=== PATIENT | female | born 1960 | race Caucasian/White ===

== ENCOUNTER 2016-11-07 20:34 | Emergency (ER) | payer OTHER ==
[~2016-11-07] VITALS: Ht 175.3 cm; Wt 79.4 kg
[~2016-11-07 20:34] MED LIST: CLON2TAB3 PO; FLUO20CA36 PO; LAMO200T2 PO
[2016-11-07] MEDS ORDERED: ACETAMINOPHEN/CODEINE 300-30 MG TABLET PO ONE (21:00)
[2016-11-07] MEDS ORDERED: CLONAZEPAM 0.5 MG TABLET PO ONE (21:00)
--- NOTE | 2016-11-07 21:12 | NUR ---
Patient discharged to home in stable conditon. Written and verbal after care instructions given. Patient verbalizes understanding of instructions.
[2016-11-07] MEDS ORDERED: ACETAMINOPHEN/CODEINE 300-30 MG TABLET ONE (21:17)
[2016-11-07] MEDS ORDERED: CLONAZEPAM 1 MG TABLET ONE (21:17)
[2016-11-07] MEDS ORDERED: ONDANSETRON ODT 4 MG TAB.RAPDIS ONE (21:20)
== END 2016-11-07 21:18 | disposition home or self-care (01) ==
LOC: ER 20:34
DX: G89.29 Other chronic pain (principal); R42 Dizziness and giddiness; R51 Headache; F07.81 Postconcussional syndrome; R59.0 Localized enlarged lymph nodes; F41.0 Panic disorder [episodic paroxysmal anxiety]; Z88.6 Allergy status to analgesic agent; Z88.2 Allergy status to sulfonamides; Z88.8 Allergy status to other drugs, medicaments and biological substances
CPT/HCPCS: A4663; Q0162

== ENCOUNTER 2016-12-08 16:20 | Emergency (ER) | payer OTHER ==
[~2016-12-08] VITALS: Ht 175.3 cm; Wt 77.1 kg
[2016-12-08] MEDS ORDERED: HYDROCODONE/APAP 5-325MG TABLET PO ONE (16:45)
[2016-12-08] MEDS ORDERED: HYDROCODONE/APAP 5-325MG TABLET ONE ×2 (16:55→17:09)
[2016-12-08] MEDS ORDERED: ONDANSETRON ODT 4 MG TAB.RAPDIS SL ONE (17:00)
[2016-12-08] MEDS ORDERED: ONDANSETRON ODT 4 MG TAB.RAPDIS ONE (17:09)
--- NOTE | 2016-12-08 17:56 | NUR ---
Patient discharged to home in stable conditon. Written and verbal after care instructions given. Patient verbalizes understanding of instructions.pt walks in steady gait. Addendum: 12/08/16 at 1801 by SAL pt not driving
[2016-12-08 18:00] VITALS: BP 121/61
== END 2016-12-08 18:09 | disposition home or self-care (01) ==
LOC: ER 16:22
DX: S29.001A Unspecified injury of muscle and tendon of front wall of thorax, initial encounter (principal); S66.902A Unspecified injury of unspecified muscle, fascia and tendon at wrist and hand level, left hand, initial encounter; S66.901A Unspecified injury of unspecified muscle, fascia and tendon at wrist and hand level, right hand, initial encounter; F07.81 Postconcussional syndrome; F31.9 Bipolar disorder, unspecified; G43.909 Migraine, unspecified, not intractable, without status migrainosus; M79.7 Fibromyalgia; Z59.0 Homelessness; Z87.820 Personal history of traumatic brain injury; Z88.2 Allergy status to sulfonamides; Z79.899 Other long term (current) drug therapy; W18.40XA Slipping, tripping and stumbling without falling, unspecified, initial encounter; Y93.02 Activity, running; Y92.89 Other specified places as the place of occurrence of the external cause; Y99.8 Other external cause status
CPT/HCPCS: 70450; 71010; 72125; 73080; 73110; A4663

== ENCOUNTER 2017-05-06 21:12 | Emergency (ER) | payer OTHER ==
[~2017-05-06] VITALS: Ht 175.3 cm; Wt 68.0 kg
[2017-05-06] MEDS ORDERED: OXYCODONE/APAP 5-325 MG TABLET PO ONE ×2 (22:15→23:30)
[2017-05-06] MEDS ORDERED: ONDANSETRON ODT 4 MG TAB.RAPDIS SL ONE (22:15)
[2017-05-06] MEDS ORDERED: ONDANSETRON ODT 4 MG TAB.RAPDIS ONE (22:27)
[2017-05-06] MEDS ORDERED: OXYCODONE/APAP 5-325 MG TABLET ONE ×2 (22:28→23:50)
--- NOTE | 2017-05-06 22:30 | NUR ---
pt awake, alert, and orientated x4. able to speak in full sentences. able to make needs known. responsive to verbal and tactile stimuli. pt comes in with c/o SOLORIO 9/10 pain. ER MD orders carried out. pt taken down via w/c for CT
--- NOTE | 2017-05-06 22:41 | NUR ---
pt returned from CT via w/c and self transferred to bed.
[2017-05-06] MEDS ORDERED: NAPROXEN 500 MG TABLET PO ONE (23:00)
[2017-05-06] MEDS ORDERED: NAPROXEN 500 MG TABLET ONE (23:50)
--- NOTE | 2017-05-06 23:56 | NUR ---
Patient discharged to home in stable conditon. Written and verbal after care instructions given as well as rx. pt instructed to not drive while taking RX. per pt [facility] is method of transportation Patient verbalizes understanding of instructions.
[2017-05-06 23:58] VITALS: BP 120/79
== END 2017-05-06 23:50 | disposition home or self-care (01) ==
LOC: ER 21:12
DX: G43.909 Migraine, unspecified, not intractable, without status migrainosus (principal); M54.2 Cervicalgia; G89.4 Chronic pain syndrome; M79.7 Fibromyalgia; Z88.2 Allergy status to sulfonamides
CPT/HCPCS: 70450; 72125; A4663; Q0162

== ENCOUNTER 2017-08-18 00:34 | Emergency (ER) | payer SELFPAY ==
[~2017-08-18] VITALS: Ht 350.5 cm; Wt 63.5 kg
--- NOTE | 2017-08-18 01:04 | NUR ---
PT ARRIVED TO ER AT 0035 AND LEFT AT 0104 WITHOUT SEEING MD. PT STATES WILL COME BACK WHEN ANOTHER DOCTOR IS AVAILABLE.
== END 2017-08-18 01:24 | disposition left against medical advice (07) ==
LOC: ER 00:38
DX: S09.90XA Unspecified injury of head, initial encounter (principal); Z88.2 Allergy status to sulfonamides; Z88.5 Allergy status to narcotic agent; Z88.8 Allergy status to other drugs, medicaments and biological substances; Z79.899 Other long term (current) drug therapy; X58.XXXA Exposure to other specified factors, initial encounter; Y93.89 Activity, other specified; Y92.89 Other specified places as the place of occurrence of the external cause; Y99.8 Other external cause status
CPT/HCPCS: A4663

== ENCOUNTER 2017-08-18 07:07 | Emergency (ER) | payer OTHER ==
[~2017-08-18] VITALS: Ht 175.3 cm; Wt 77.1 kg
--- NOTE | 2017-08-18 07:34 | NUR ---
Dr Thompson at the bedside for MSE.
[2017-08-18 08:03] LABS: BASOPHILS % (AUTO) 0.7 % (0.0-2.0); EOSINOPHILS # (AUTO) 0.1 K/uL (0.0-0.7); EOSINOPHILS % (AUTO) 2.4 % (0.0-7.0); HEMATOCRIT 33.1 % (31.2-41.9); HEMOGLOBIN 11.1 g/dL (10.9-14.3); LYMPHOCYTES # (AUTO) 2.6 K/uL (20.0-40.0); LYMPHOCYTES % (AUTO) 45.4 % (20.5-51.5); MEAN CORPUSCULAR HGB CONC 34 g/dL (32.3-35.6); MEAN CORPUSCULAR VOLUME 92.6 fL (75.5-95.3); MONOCYTES # (AUTO) 0.5 K/uL (2.0-10.0); MONOCYTES % (AUTO) 8.4 % (0.0-11.0); NEUTROPHILS # (AUTO) 2.5 K/uL (1.8-8.9); NEUTROPHILS % (AUTO) 43.1 % (38.5-71.5); PLATELET COUNT (AUTO) 292 K/uL (179-408); RED BLOOD CELL COUNT(AUTO) 3.58 MIL/uL (3.63-4.92); WHITE BLOOD COUNT (AUTO) 5.8 K/uL (3.8-11.8)
--- NOTE | 2017-08-18 08:09 | NUR ---
Pt out of ER for CT.
[2017-08-18 08:13] LABS: BILIRUBIN,TOTAL 0.2 mg/dL (0.2-1.0); CREATININE 0.8 mg/dL (0.6-1.3); POTASSIUM 4.2 mmol/L (3.5-5.1); TOTAL PROTEIN, SERUM 7.3 g/dL (6.4-8.2)
[2017-08-18] MEDS ORDERED: ONDANSETRON IV *ER 4 MG/2 ML VIAL IV ONE (08:30)
[2017-08-18] MEDS ORDERED: ONDANSETRON ODT 4 MG TAB.RAPDIS SL ONE (08:45)
--- NOTE | 2017-08-18 09:28 | NUR ---
Patient is resting comfortably in bed with eyes closed, NAD noted.
--- NOTE | 2017-08-18 10:05 | NUR ---
Patient discharged to home in stable conditon. Written and verbal after care instructions given. Patient verbalizes understanding of instructions. Pt left ER w/ steady gait.
[2017-08-18 10:06] VITALS: BP 122/71
== END 2017-08-18 10:07 | disposition home or self-care (01) ==
LOC: ER 07:07
DX: M54.2 Cervicalgia (principal); G89.29 Other chronic pain; Z88.2 Allergy status to sulfonamides; Z88.5 Allergy status to narcotic agent; Z88.8 Allergy status to other drugs, medicaments and biological substances; Z79.899 Other long term (current) drug therapy
CPT/HCPCS: 36415; 70450; 71045; 72125; 85025; A4663; Q0162

== ENCOUNTER 2017-11-23 01:58 | Emergency (ER) | payer OTHER ==
[~2017-11-23] VITALS: Ht 175.3 cm; Wt 72.6 kg
--- NOTE | 2017-11-23 02:30 | NUR ---
Dr. Ashvin CANELA MD at bedside for MSE.
[2017-11-23] MEDS ORDERED: HYDROCODONE/APAP 5-325MG TABLET ONE (02:45)
[2017-11-23] MEDS ORDERED: HYDROCODONE/APAP 5-325MG TABLET PO ONE (02:45)
--- NOTE | 2017-11-23 02:50 | NUR ---
Pt went down to radiology dept. for xray + CT scan.
[2017-11-23] MEDS ORDERED: ONDANSETRON ODT 4 MG TAB.RAPDIS ONE (03:40)
[2017-11-23] MEDS ORDERED: ONDANSETRON ODT 4 MG TAB.RAPDIS SL ONE (03:45)
[2017-11-23] MEDS ORDERED: OXYCODONE/APAP 5-325 MG TABLET PO ONE (04:15)
[2017-11-23] MEDS ORDERED: OXYCODONE/APAP 5-325 MG TABLET ONE (04:20)
--- NOTE | 2017-11-23 04:26 | NUR ---
Patient discharged to home in stable conditon. Written and verbal after care instructions given. Patient verbalizes understanding of instructions. Pt left ER in steady gait with service dog. Pt states she will take a taxi home. All belongings with pt. NAD noted. VSS.
[2017-11-23 04:28] VITALS: BP 116/69
== END 2017-11-23 04:28 | disposition home or self-care (01) ==
LOC: ER 02:01
DX: S16.1XXA Strain of muscle, fascia and tendon at neck level, initial encounter (principal); M75.41 Impingement syndrome of right shoulder; Z88.2 Allergy status to sulfonamides; Z88.5 Allergy status to narcotic agent; Z88.8 Allergy status to other drugs, medicaments and biological substances; W19.XXXA Unspecified fall, initial encounter; Y93.89 Activity, other specified; Y92.89 Other specified places as the place of occurrence of the external cause; Y99.8 Other external cause status
CPT/HCPCS: 29105; 72125; 73020; 99284; A4663; Q0162

== ENCOUNTER 2017-11-27 04:49 | Emergency (ER) | payer OTHER ==
[~2017-11-27] VITALS: Ht 175.3 cm; Wt 72.6 kg
[2017-11-27] MEDS ORDERED: OXYCODONE/APAP 5-325 MG TABLET ONE (05:58)
[2017-11-27] MEDS ORDERED: OXYCODONE/APAP 5-325 MG TABLET PO ONE (06:00)
--- NOTE | 2017-11-27 06:01 | NUR ---
Patient discharged to home in stable conditon. Written and verbal after care instructions given. Patient verbalizes understanding of instructions. WALKED OUT OF ER WITH NO DISTRESS NOTED
[2017-11-27 06:03] VITALS: BP 116/65
== END 2017-11-27 06:05 | disposition home or self-care (01) ==
LOC: ER 04:50
DX: G89.29 Other chronic pain (principal); M25.511 Pain in right shoulder; M54.2 Cervicalgia; M54.9 Dorsalgia, unspecified; Z76.5 Malingerer [conscious simulation]; Z88.2 Allergy status to sulfonamides; Z88.8 Allergy status to other drugs, medicaments and biological substances
CPT/HCPCS: A4663

== ENCOUNTER 2017-12-14 01:41 | Emergency (ER) | payer OTHER ==
[~2017-12-14] VITALS: Ht 172.7 cm; Wt 65.8 kg
[2017-12-14 03:17] VITALS: BP 138/74
--- NOTE | 2017-12-14 03:17 | NUR ---
Patient discharged to home in stable conditon. Written and verbal after care instructions given. Patient verbalizes understanding of instructions.
== END 2017-12-14 03:24 | disposition home or self-care (01) ==
LOC: ER 01:48
DX: M54.12 Radiculopathy, cervical region (principal); G89.29 Other chronic pain; M54.2 Cervicalgia; M25.512 Pain in left shoulder; Z88.2 Allergy status to sulfonamides; Z88.8 Allergy status to other drugs, medicaments and biological substances
CPT/HCPCS: 99283; A4663